=== PATIENT | female | born 1995 | race Caucasian/White ===

== ENCOUNTER 2018-05-18 11:12 | Inpatient (IN) | payer OTHER, SELFPAY ==
[2018-05-18 11:50] VITALS: BMI 30.8
[2018-05-18] MEDS ORDERED: Butorphanol Tartrate 1 MG/ML VIAL SLOW IVP PRN (14:05)
[2018-05-18] MEDS ORDERED: Lactated Ringer's 1,000 ML IV SCH (14:15)
[2018-05-18 14:25] LABS: HBSAg Index 0.19 S/CO (0-0.99); Hep B Surf Ag Non-Reactive S/CO (NonReactive); Syphilis Antibody Nonreactive (Nonreactive); Syphilis Antibody Index 0.04 S/CO (<1.00 Non-Reactive)
[2018-05-18 14:28] LABS: Hemoglobin 14.5 g/dL (12.0-16.0); Mean Corpuscular HGB CONC 32.7 g/dL (32.0-36.0); Mean Corpuscular Hemoglobin 27.8 pg (27.0-31.0); Mean Platelet Volume 12.2 fL (7.4-10.4); Platelet Count 98 thou/uL (130-400); RBC Distribution Width 13.7 % (11.5-14.5); Red Blood Cell (RBC) Count 5.21 mill/uL (4.20-5.40); White Blood Cell (WBC) Count 10.1 thou/uL (4.8-10.8)
[2018-05-18] MEDS ORDERED: Acetaminophen 1,000 MG in Premix Bag 1 BAG IVPB SCH (16:30)
[2018-05-18] MEDS ORDERED: PHENYLEPHRINE-NS 100 MCG/ML 10 ML SYRINGE ONE ×2 (17:00→17:32)
[2018-05-18] MEDS ORDERED: Ondansetron PF 4 MG/2 ML Vial ONE ×2 (17:00→17:32)
[2018-05-18] MEDS ORDERED: Dexamethasone 20 MG/5 ML VIAL ONE (17:00)
[2018-05-18] MEDS ORDERED: ePHEDrine/0.9% NaCl/PF SYRINGE 50 mg/10 ml ONE ×2 (17:00→17:32)
[2018-05-18] MEDS ORDERED: Morphine PF 1 MG/ML SYR ONE (17:31)
[2018-05-18] MEDS ORDERED: Oxytocin 10 UNITS/ML VIAL ONE (17:32)
[2018-05-18] MEDS ORDERED: Lidocaine 1% PF 5 ML VIAL ONE (17:32)
[2018-05-18] MEDS ORDERED: Bupivacaine 0.75% W/DEXTROSE 8.25% 2 ML AMP ONE (17:32)
[2018-05-18] MEDS ORDERED: Dexamethasone 4 mg/ml Vial ONE (17:32)
--- NOTE | 2018-05-18 17:44 | PDOC.LDHP ---
Labor and Delivery H&P Chief complaint: contractions HPI: 22 y/o at 38 and 2/7 [id number] with Contractions today, declines . Previous primary for HELLP syndrome. Due date: 05/30/18 Grav: 2 Para: 1 Current complications: none Current medications: pre- vitamins Previous surgical history: low tranverse CS Allergies/Adverse Reactions: Allergies Allergy/AdvReac Type Severity Reaction Status Date / Time No Known Allergies Allergy Verified 05/18/18 11:39 Social history: tobacco use - Assessment L&D Assessment: term patient in labor - Plan Plan: to OR for section
[2018-05-18] MEDS ORDERED: Bicitra 30 ML UDCUP PO SCH (17:45)
[2018-05-18] MEDS ORDERED: CEFAZOLIN/Water 2 GM/20 ML SYRINGE SLOW IVP SCH (17:45)
[2018-05-18] MEDS ORDERED: CEFAZOLIN 2 GM/50 ML-DEXTROSE 2 GM in Premix Bag 1 BAG IVPB SCH (18:00)
[2018-05-18] MEDS ORDERED: Promethazine HCl 25 MG/ML VIAL IM PRN ×2 (18:34→22:01)
[2018-05-18] MEDS ORDERED: Naloxone HCl 0.4 mg/ml Vial IV PRN (18:34)
[2018-05-18] MEDS ORDERED: Ondansetron HCl/PF 4 MG/2 ML Vial IVP PRN (18:34)
[2018-05-18] MEDS ORDERED: diphenhydrAMINE 50 MG/ML VIAL IVP PRN (18:34)
[2018-05-18] MEDS ORDERED: HYDROmorphone 2 MG/ML VIAL SLOW IVP PRN (18:34)
[2018-05-18] MEDS ORDERED: L&D-Morphine 4 MG/ML VIAL SLOW IVP PRN (18:34)
[2018-05-18] MEDS ORDERED: Naloxone HCl 0.4 mg/ml Vial IVP PRN ×2 (18:34)
[2018-05-18] MEDS ORDERED: Ondansetron PF 4 MG/2 ML Vial IVP PRN ×2 (18:34→22:01)
[2018-05-18] MEDS ORDERED: Eucerin (Mineral Oil/Petrolatum,White) 30 gm Jar TOP PRN (18:34)
[2018-05-18] MEDS ORDERED: Meperidine HCl/PF 25 MG/ML VIAL SLOW IVP PRN (18:34)
[2018-05-18] MEDS ORDERED: Promethazine HCl 25 MG SUPP PR PRN (18:34)
[2018-05-18] MEDS ORDERED: Communication Order-Pharmacy FS SCH (18:45)
[2018-05-18] MEDS ORDERED: Ketorolac Tromethamine 30 MG/ML VIAL IVP SCH (18:45)
[2018-05-18] MEDS ORDERED: NS / Oxytocin 40 units/1000ml 1,000 ML ONE (20:18)
[2018-05-18] MEDS ORDERED: Ketorolac Tromethamine 30 MG/ML VIAL ONE (20:52)
[2018-05-18] MEDS: Ketorolac Tromethamine 30 MG/ML VIAL IVP PRN (20:53)
[2018-05-18] MEDS ORDERED: NS / Oxytocin 40 units/1000ml 1,000 ML IV SCH (22:01)
[2018-05-18] MEDS ORDERED: Simethicone Chewable 80 MG TAB PO PRN (22:01)
[2018-05-18] MEDS ORDERED: HYDROcodone/Acetaminophen 5/325 mg Tablet PO PRN (22:01)
[2018-05-18] MEDS ORDERED: Bisacodyl 10 MG SUPP PR PRN (22:01)
[2018-05-18] MEDS ORDERED: Zolpidem Tartrate 5 MG TAB PO PRN (22:01)
[2018-05-18] MEDS ORDERED: Misoprostol 200 MCG TAB PR PRN (22:01)
[2018-05-18] MEDS ORDERED: Lanolin Ointment 7 GM TUBE TOP PRN (22:01)
[2018-05-18] MEDS ORDERED: diphenhydrAMINE 25 MG CAP PO PRN (22:01)
[2018-05-18] MEDS ORDERED: Docusate Calcium (SURFAK) 240 MG CAP PO SCH (22:15)
[2018-05-19] MEDS: Nicotine 14 MG PATCH TD SCH ×2 (00:23→21:42)
[2018-05-19] MEDS: Ketorolac Tromethamine 30 MG/ML VIAL IVP PRN (02:31)
[2018-05-19 05:41] LABS: Hemoglobin 12.9 g/dL (12.0-16.0); Mean Corpuscular HGB CONC 31.9 g/dL (32.0-36.0); Mean Corpuscular Hemoglobin 27.5 pg (27.0-31.0); Mean Corpuscular Volume 86.2 fL (78.0-98.0); Mean Platelet Volume 13.1 fL (7.4-10.4); Platelet Count 82 thou/uL (130-400); RBC Distribution Width 13.5 % (11.5-14.5); White Blood Cell (WBC) Count 16.3 thou/uL (4.8-10.8)
[2018-05-19] MEDS ORDERED: Meperidine HCl/PF 25 MG/ML VIAL IM PRN (06:45)
[2018-05-19] MEDS ORDERED: HYDROcodone/Acetaminophen 5/325 mg Tablet PO PRN ×2 (06:45)
[2018-05-19] MEDS ORDERED: Butorphanol Tartrate 1 MG/ML VIAL SLOW IVP PRN (06:45)
--- NOTE | 2018-05-19 06:47 | OP ---
DATE OF SERVICE: 05/18/2018 PRIMARY OB: Dr. Drake Yu This is Dr. Jose Talamantes dictating documentation that I was airplane first officer to a repeat C-sect ion performed by Dr. Drake Yu.
[2018-05-19] MEDS: Docusate Calcium (SURFAK) 240 MG CAP PO SCH ×2 (08:11→21:27)
[2018-05-19] MEDS ORDERED: Varicella virus, LIVE 0.5 ML VIAL SC ONE (09:00)
[2018-05-19] MEDS ORDERED: Measles/Mumps/Rubella 10 MCG/0.5 ML VIAL SC ONE (09:00)
[2018-05-19] MEDS ORDERED: Adacel (T-DAP) 0.5 ML VIAL IM ONE (09:00)
[2018-05-19] MEDS: Ibuprofen 800 MG TAB PO SCH ×2 (13:57→21:27)
[2018-05-19] MEDS ORDERED: HYDROcodone/Acetaminophen 7.5/325 mg Tablet PO PRN (14:54)
--- NOTE | 2018-05-19 14:56 | PDOC.PP ---
Post Progress Note Post Day #: 1 PO intake tolerated: yes Flatus: yes Ambulation: yes Vital Signs (12 hours) Temp Pulse Resp BP Pulse Ox 05/19/18 11:56 97.8 F 61 20 118/59 L 05/19/18 08:28 98.3 F 62 20 112/64 96 05/19/18 04:30 98.3 F 49 L 18 100/56 L Weight Weight 174 lb - Physical Examination General: NAD Cardiovascular: no m/r/g, RRR Respiratory: clear to auscultation bilaterally, non-labored breathing Abdominal: + bowel sounds, lochia, no distention, appropriately TTP Skin: CS incision dry & intact, no rash Neurological: no gross focal deficits Psychiatric: A&Ox3, normal affect Result Diagrams: 05/19/18 05:21 Additional Labs: Post Labs Blood Type O POSITIVE 05/18/18 12:40 Hep Bs Antigen Non-Reactive S/CO (NonReactive) 05/18/18 12:40
[2018-05-19] MEDS: HYDROcodone/Acetaminophen 7.5/325 mg Tablet PO PRN (15:44)
[2018-05-20] MEDS: Ibuprofen 800 MG TAB PO SCH ×3 (05:33→21:38)
[2018-05-20] MEDS: Docusate Calcium (SURFAK) 240 MG CAP PO SCH ×2 (09:28→21:37)
--- NOTE | 2018-05-20 13:30 | OP ---
DATE OF PROCEDURE: 05/18/2018. PREOPERATIVE DIAGNOSIS: Intrauterine at 38 weeks and 2 days with spontaneous onset of labo r and a previous history of section with declined trial of labor after section. POSTOPERATIVE DIAGNOSIS: Intrauterine at 38 weeks and 2 days with spontaneous onset of lab or and a previous history of section with declined trial of labor after section. PROCEDURE PERFORMED: Repeat second low transverse section. FINDINGS: Viable male weighing 3285 grams or 7 pounds 4 ounces, Apgars of 8 and 8. QUANTITATIVE BLOOD LOSS: 457 mL COMPLICATIONS: None. DETAILS OF THE PROCEDURE: The patient was consented and taken back to the operating room where spina l anesthesia was found to be adequate. She was then prepped and draped in the normal sterile fashion . A time out was performed by the entire operative team. The incision was then marked with a markin g pen tested using sharp pickups. An incision was then made with a scalpel. The incision was saeed d through the adipose tissue down to the underlying rectus fascia using both sharp dissection as well as cautery. Once the fascia was identified, it was incised in the midline and then the fascial inci sammy was carried through in both lateral directions using sharp as well as cautery dissection techn[employer] Seeds ues. Next, the superior aspect of the rectus fascia was grasped with 2 Zuleyka clamps which was tente d up and the rectus muscles were dissected off using blunt dissection as well as cautery dissection. Similarly, the inferior aspect of the fascial incision was grasped with 2 Zuleyka clamps, tented up a nd the rectus muscles were dissected off bluntly as well as sharply. Next, the rectus muscles were s eparated in the midline and the peritoneum identified. The peritoneum was then carefully grasped wit h two hemostats and entered sharply. The peritoneal incision was extended superiorly and inferiorly and bladder blade was placed in the lower abdomen. At this point, the uterus was identified and the bladder flap was then developed using pickups with teeth as well as Metzenbaum scissors in both later al directions. The bladder flap was then dissected downwards using the router machine operator's finger as well as Metzenbaum scissors. The bladder blade was replaced. The lower uterine segment was then identified and entered sharply using a clean scalpel. The uterine incision was then dissected downwards until t hin layer of muscle remained and this was entered bluntly using a hemostat to avoid any injury to the baby. The uterine incision was then stretched using two fingers in both lateral directions. An amniotomy was performed artificially using a hemostat and the baby was delivered using fundal pres sure in a gentle fashion. Once out, the baby's mouth and nose were bulb suctioned, cord clamped and cut, and the baby was handed to waiting attendants. Next, the uterus was exteriorized, cleared of al l clots and debris and the uterine incision was repaired with #1 Monocryl in a running locking fashio n. A second suture of the same type was used to obtain complete hemostasis at the uterine incision. The bladder flap was reapproximated using 3-0 Monocryl. Next, patient's left and right adnexa were inspected and appeared to be within normal limits. The posterior cul-de-sac was blotted dry and hemo stasis assured. One more look at the uterine incision demonstrated hemostasis. Next, the uterus was replaced back within the abdomen. The peritoneum was reapproximated using 2-0 Monocryl without diff iculty. The rectus muscles were then allowed to come back together and 0 chromic was used to aid in reapproximation of the muscle as necessary. The rectus fascia was then reapproximated in a running f ashion using 0 Vicryl suture. The adipose tissue was then examined and appeared to be well approxima alonso without any obvious separations. Finally, the skin was reapproximated with 3-0 Monocryl on a Jluis th needle without difficulty and Dermabond adhesive was applied to the skin. Once the glue was dry, the drapes were removed and the patient was transferred to an ambulatory bed where she was taken to [facility] awake and in stable condition. Sponge, lap, and needle counts were correct x3.
[2018-05-20] MEDS: Nicotine 14 MG PATCH TD SCH (21:38)
[2018-05-21] MEDS: Ibuprofen 800 MG TAB PO SCH ×2 (06:24→13:32)
[2018-05-21] MEDS: HYDROcodone/Acetaminophen 7.5/325 mg Tablet PO PRN ×2 (06:53→11:35)
[2018-05-21] MEDS: Docusate Calcium (SURFAK) 240 MG CAP PO SCH (08:10)
[2018-05-21 08:18] VITALS: BP 129/80; TEMP 97.9
[2018-05-21] MEDS ORDERED: Fleet Enema 133 ML BOT PR SCH (12:00)
== END 2018-05-21 14:05 | disposition home or self-care (01) | DRG 787 ==
LOC: L&D/OP 11:12 → L&D 12:52 → 3SW 22:26
PROVIDERS: ADMIT Obstetrics & Gynecology; ATTEND Obstetrics & Gynecology
PROC: 10D00Z1 Extraction of Products of Conception, Low, Open Approach (ICD-10-PCS; principal; 2018-05-18)
DX: O34.211 Maternal care for low transverse scar from previous cesarean delivery (principal); O98.52 Other viral diseases complicating childbirth; Z3A.38 38 weeks gestation of pregnancy; Z37.0 Single live birth; B00.9 Herpesviral infection, unspecified
CPT/HCPCS: 36415; 51702; 85027; 86780; 86850; 86900; 86901; 87340; 90471; 90686; 90715; 99285; G0008; J0131; J1100; J1885; J2001; J2274; J2405; J2590; J3490

== ENCOUNTER 2020-04-21 11:00 | Outpatient (CLI) | payer OTHER ==
[2020-04-21 19:48] LABS: SARS-CoV-2 MS2 Positive; SARS-CoV-2 N Gene Negative; SARS-CoV-2 S Gene Negative; SARS-CoV-2 by NAA Not Detected (NotDetected); SARS-CoV-2 orf1ab Negative
== END 2020-04-21 11:01 | disposition home or self-care (01) ==
LOC: LABBT 11:00
PROVIDERS: ATTEND Obstetrics & Gynecology
DX: Z20.828 Contact with and (suspected) exposure to other viral communicable diseases (principal)
CPT/HCPCS: 87635; U0003

== ENCOUNTER 2020-04-26 06:52 | Inpatient (IN) | payer OTHER ==
--- NOTE | 2020-04-26 01:28 | PDOC.LDHP ---
Labor and Delivery H&P Chief complaint: scheduled section HPI: 24 y/o presents for 3rd repeat at 39 weeks. Current gestational age (weeks): 39 Due date: 05/03/20 Grav: 3 Para: 2 Abnormal US findings: No Current medications: pre-nnamdi vitamins Previous surgical history: low tranverse CS Allergies/Adverse Reactions: Allergies Allergy/AdvReac Type Severity Reaction Status Date / Time No Known Allergies Allergy Verified 05/18/18 11:39 - Physical Exam Vital signs reviewed and normal: yes General: NAD, resting Heart: RRR Lungs: CTAB Abdomen: gravid Extremeties: no edema FHT: category 1 - Assessment L&D Assessment: scheduled repeat section - Plan Plan: admit to L&D, to OR for section
[~2020-04-26 06:52] MED LIST: Ondansetron PF 4 MG/2 ML Vial IVP PRN; Promethazine HCl 25 MG/ML VIAL IM PRN; hydrALAZINE 20 MG/ML VIAL SLOW IVP PRN
[2020-04-26] MEDS ORDERED: Bicitra 30 ML UDCUP PO SCH (07:00)
[2020-04-26] MEDS ORDERED: CEFAZOLIN 2 GM in Premix Bag 1 BAG IVPB SCH (07:00)
[2020-04-26 08:56] VITALS: BMI 32.5
[2020-04-26] MEDS ORDERED: FLU VACC QS2020-21(6MOS UP)/PF 60 MCG/0.5 ML SYRINGE IM ONE (09:15)
[2020-04-26 09:16] LABS: Hemoglobin 13.7 g/dL (12.0-16.0); Mean Corpuscular HGB CONC 33.3 g/dL (32.0-36.0); Mean Corpuscular Hemoglobin 27.5 pg (27.0-31.0); Mean Corpuscular Volume 82.7 fL (78.0-98.0); Mean Platelet Volume 12.7 fL (7.4-10.4); Platelet Count 148 thou/uL (130-400); RBC Distribution Width 13.5 % (11.5-14.5); Red Blood Cell (RBC) Count 4.97 mill/uL (4.20-5.40); White Blood Cell (WBC) Count 9.2 thou/uL (4.8-10.8)
[2020-04-26 09:56] LABS: Syphilis Antibody Nonreactive (Nonreactive); Syphilis Antibody Index 0.04 S/CO (<1.00 Non-Reactive)
[2020-04-26 09:57] LABS: HBSAg Index 0.16 S/CO (0-0.99); Hep B Surf Ag Non-Reactive S/CO (NonReactive)
[2020-04-26] MEDS: Lactated Ringer's 1,000 ML IV SCH (15:45)
[2020-04-26] MEDS ORDERED: Ondansetron PF 4 MG/2 ML Vial ONE ×2 (16:06→19:04)
[2020-04-26] MEDS ORDERED: ePHEDrine 50 MG/ML VIAL ONE ×2 (16:06→19:04)
[2020-04-26] MEDS ORDERED: PHENYLEPHRINE-NS 100 MCG/ML 10 ML SYRINGE ONE (16:06)
[2020-04-26] MEDS ORDERED: Ketorolac Tromethamine 30 MG/ML VIAL ONE ×2 (16:06→19:04)
[2020-04-26] MEDS ORDERED: Oxytocin 10 UNITS/ML VIAL ONE ×2 (16:06→19:04)
[2020-04-26] MEDS ORDERED: Midazolam HCl 2 mg/2 ml Vial ONE (17:39)
[2020-04-26] MEDS ORDERED: Ketorolac Tromethamine 30 MG/ML VIAL IVP PRN (17:51)
[2020-04-26] MEDS ORDERED: Naloxone HCl 0.4 mg/ml Vial IVP PRN ×2 (17:51)
[2020-04-26] MEDS ORDERED: HYDROmorphone 2 MG/ML VIAL SLOW IVP PRN ×2 (17:51→21:49)
[2020-04-26] MEDS ORDERED: Naloxone HCl 0.4 mg/ml Vial IV PRN (17:51)
[2020-04-26] MEDS ORDERED: diphenhydrAMINE 50 MG/ML VIAL IVP PRN (17:51)
[2020-04-26] MEDS ORDERED: Promethazine HCl 25 MG/ML VIAL IM PRN ×2 (17:51→20:49)
[2020-04-26] MEDS ORDERED: Promethazine HCl 25 MG SUPP PR PRN (17:51)
[2020-04-26] MEDS ORDERED: Ondansetron PF 4 MG/2 ML Vial IVP PRN ×2 (17:51→20:49)
[2020-04-26] MEDS ORDERED: Meperidine HCl/PF 25 MG/ML VIAL SLOW IVP PRN (17:51)
[2020-04-26] MEDS ORDERED: L&D-Morphine 4 MG/ML VIAL SLOW IVP PRN ×2 (17:51→21:49)
[2020-04-26] MEDS ORDERED: Ondansetron HCl/PF 4 MG/2 ML Vial IVP PRN ×2 (17:51→21:49)
[2020-04-26] MEDS ORDERED: Promethazine HCl 25 MG/ML VIAL ONE (17:59)
[2020-04-26] MEDS ORDERED: Dexamethasone 4 mg/ml Vial ONE ×2 (17:59→19:04)
[2020-04-26] MEDS ORDERED: Communication Order-Pharmacy FS SCH (18:00)
[2020-04-26] MEDS ORDERED: Ketorolac Tromethamine 30 MG/ML VIAL IVP SCH (18:00)
[2020-04-26] MEDS ORDERED: diphenhydrAMINE 50 MG/ML VIAL ONE (18:04)
[2020-04-26] MEDS ORDERED: Meperidine HCl/PF 25 MG/ML VIAL ONE (20:45)
[2020-04-26] MEDS ORDERED: hydrALAZINE 20 MG/ML VIAL SLOW IVP PRN (20:49)
[2020-04-26] MEDS ORDERED: Simethicone Chewable 80 MG TAB PO PRN (20:49)
[2020-04-26] MEDS ORDERED: Lanolin Ointment 7 GM TUBE TOP PRN (20:49)
[2020-04-26] MEDS ORDERED: Zolpidem Tartrate 5 MG TAB PO PRN (20:49)
[2020-04-26] MEDS ORDERED: Methylergonovine 0.2 MG/ML VIAL IM PRN (20:49)
[2020-04-26] MEDS ORDERED: Methylergonovine 0.2 MG TAB PO PRN (20:49)
[2020-04-26] MEDS ORDERED: Misoprostol 200 MCG TAB PR PRN (20:49)
[2020-04-26] MEDS ORDERED: NS / Oxytocin 40 units/1000ml 1,000 ML IV SCH (20:49)
[2020-04-26] MEDS ORDERED: Sodium Chloride 0.9% 10 ML ONE (23:18)
--- NOTE | 2020-04-27 00:08 | OP ---
DATE OF PROCEDURE: 04/26/2020 PREOPERATIVE DIAGNOSIS: Intrauterine at 39 weeks for repeat third section. POSTOPERATIVE DIAGNOSES: 1. Intrauterine at 39 weeks for repeat third section. 2. Small uterine fibroid suspected. PROCEDURES PERFORMED: 1. Repeat low-transverse section. 2. Myomectomy removing two suspected fibroids. QUANTITATIVE BLOOD LOSS: 360 mL. FINDINGS: Viable male infant weighing 6 pounds 14 ounces. Apgars 9 and 9. COMPLICATIONS: None. DESCRIPTION OF PROCEDURE: After obtaining consent, the patient was taken back to the operating room where her regional anesthesia was found to be adequate. The patient was placed in the dorsal supine position with leftward tilt. The skin was tested for adequate anesthesia and a scalpel was then used to make a Pfannenstiel incision which was carried down to the underlying rectus fascia. The fascia was incised in the midline and the fascial incision extended in both lateral directions. 2 Zuleyka clamps were placed at the superior aspect of the fascia and the rectus muscles were dissected away. Similarly, 2 Zuleyka clamps were placed at the inferior aspect of the incision and rectus muscles dissected away. The rectus muscles were then in the midline and the peritoneum identified and entered bluntly with the hemostat. The peritoneal incision was then extended superiorly and inferiorly. A bladder blade was then placed within the peritoneal cavity and a bladder flap was made with Metzenbaum scissors and pickups with teeth. The bladder blade was replaced. A clean scalpel was used to make a uterine incision. The baby was then delivered with gentle fundal pressure without difficulty. The baby's mouth and nose were bulb suctioned and the cord clamped and cut. The baby was then handed to waiting attendants. Cord blood and cord gases were obtained. The placenta was manually extracted. The uterus exteriorized, cleared of all clots and debris, and repaired with #1 chromic suture in a running, locked fashion. Hemostasis at the uterine wall was excellent. The bladder flap was repaired with 2-0 Monocryl in a running fashion. The tubes and ovaries were inspected and appeared normal. The posterior cul-de-sac was blotted dry and the uterus was replaced within the abdomen. Again, the uterus was firm, and hemostasis was excellent at the uterine repair. Next, a single uterine lesions was carefully examined. It appeared highly abnormal and may have represented a uterine leiomyoma or similar lesion. It was decided to attempt removal of the lesion and the specimen sent to pathology for definitive diagnosis and permanent section. Statistically, the chance of this being a malignant lesion is approximately 0.3 to 0.5%. Careful dissection was then done using Bovie cautery and these lesion was removed in its entirety to the best of our ability. 0-chromic was used along with Bovie cautery to obtain complete hemostasis of the lesion. Peritoneum was closed with 2-0 chromic suture in a running fashion. Fascia was reapproximated with 0 Vicryl, using 2 running sutures tied in the midline. The subcutaneous tissue was irrigated. Hemostasis was assured and the skin closed with 3-0 Monocryl and Dermabond adhesive. The patient was then transferred to the ambulatory bed and taken to recovery in stable condition. Job ID: [id number]
[2020-04-27] MEDS ORDERED: diphenhydrAMINE 25 MG CAP PO PRN (00:41)
[2020-04-27] MEDS ORDERED: Promethazine HCl 25 MG/ML VIAL IM PRN (00:41)
[2020-04-27] MEDS ORDERED: Zolpidem Tartrate 5 MG TAB PO PRN (00:41)
[2020-04-27] MEDS ORDERED: Ondansetron PF 4 MG/2 ML Vial IVP PRN (00:41)
[2020-04-27] MEDS ORDERED: fentaNYL Citrate/PF 2,000 MCG in Sodium Chloride 0.9% 60 ML IV PRN (00:41)
[2020-04-27] MEDS ORDERED: diphenhydrAMINE 50 MG/ML VIAL IM PRN (00:41)
[2020-04-27] MEDS ORDERED: diphenhydrAMINE 50 MG/ML VIAL IVP PRN (00:41)
[2020-04-27] MEDS ORDERED: Naloxone HCl 0.4 mg/ml Vial IV PRN (00:41)
[2020-04-27] MEDS ORDERED: Communication Order-Pharmacy FS SCH (00:45)
[2020-04-27] MEDS ORDERED: HYDROmorphone 0.5 MG/0.5 ML SYRINGE SLOW IVP SCH (01:00)
[2020-04-27] MEDS ORDERED: traMADol HCl 50 MG TAB PO PRN (06:00)
[2020-04-27 07:22] LABS: Hemoglobin 12.5 g/dL (12.0-16.0); Mean Corpuscular HGB CONC 32.7 g/dL (32.0-36.0); Mean Corpuscular Hemoglobin 27.7 pg (27.0-31.0); Mean Corpuscular Volume 84.5 fL (78.0-98.0); Mean Platelet Volume 12.4 fL (7.4-10.4); Platelet Count 118 thou/uL (130-400); RBC Distribution Width 13.6 % (11.5-14.5); Red Blood Cell (RBC) Count 4.53 mill/uL (4.20-5.40); White Blood Cell (WBC) Count 15.9 thou/uL (4.8-10.8)
[2020-04-27] MEDS ORDERED: Acetaminophen 500 MG TAB PO PRN (08:16)
[2020-04-27] MEDS: Ferrous Sulfate 325 MG TAB PO SCH ×3 (08:53→21:00)
[2020-04-27] MEDS: Docusate Calcium (SURFAK) 240 MG CAP PO SCH ×3 (08:53→21:35)
[2020-04-27] MEDS ORDERED: Adacel (T-DAP) 0.5 ML SYRINGE IM ONE (09:00)
[2020-04-27] MEDS ORDERED: Varicella virus, LIVE 0.5 ML VIAL SC ONE (09:00)
[2020-04-27] MEDS ORDERED: Measles/Mumps/Rubella 10 MCG/0.5 ML VIAL SC ONE (09:00)
[2020-04-27] MEDS: Lactated Ringer's 1,000 ML IV SCH (09:02)
[2020-04-27] MEDS: Ibuprofen 800 MG TAB PO SCH ×3 (09:15→23:11)
[2020-04-27] MEDS: Prenatal Vitamin 1 TAB PO SCH (09:16)
[2020-04-27] MEDS: traMADol HCl 50 MG TAB PO PRN ×3 (13:38→21:35)
[2020-04-27] MEDS ORDERED: Bisacodyl 10 MG SUPP PR PRN (19:55)
[2020-04-27] MEDS ORDERED: Milk Of Magnesia 30 ML UDCUP PO PRN (19:56)
[2020-04-28] MEDS: traMADol HCl 50 MG TAB PO PRN ×4 (01:32→14:44)
[2020-04-28] MEDS: Ibuprofen 800 MG TAB PO SCH ×3 (07:24→16:17)
[2020-04-28] MEDS: Docusate Calcium (SURFAK) 240 MG CAP PO SCH (08:18)
[2020-04-28] MEDS: Prenatal Vitamin 1 TAB PO SCH (08:18)
[2020-04-28] MEDS: Ferrous Sulfate 325 MG TAB PO SCH (10:33)
[2020-04-28 12:01] VITALS: BP 113/55; TEMP 98.3
== END 2020-04-28 17:48 | disposition home or self-care (01) | DRG 788 ==
LOC: L&D 06:52 → 3SW 21:41
PROVIDERS: ADMIT Obstetrics & Gynecology; ATTEND Obstetrics & Gynecology
PROC: 10D00Z1 Extraction of Products of Conception, Low, Open Approach (ICD-10-PCS; principal; 2020-04-26)
PROC: 0UB90ZZ Excision of Uterus, Open Approach (ICD-10-PCS; 2020-04-26)
DX: O34.211 Maternal care for low transverse scar from previous cesarean delivery (principal); Z3A.39 39 weeks gestation of pregnancy; Z37.0 Single live birth; O34.13 Maternal care for benign tumor of corpus uteri, third trimester; D25.9 Leiomyoma of uterus, unspecified
CPT/HCPCS: 36415; 51702; 85027; 86780; 86850; 86900; 86901; 87340; 88305; J0690; J1100; J1170; J1200; J1885; J2175; J2250; J2270; J2405; J2550; J3010; J3490